=== PATIENT | male | born 1945 | race Caucasian/White ===

== ENCOUNTER 2016-10-31 14:57 | Emergency (ER) | payer MEDICARE ==
[2016-10-31 16:20] VITALS: BP 148/81
--- NOTE | 2016-10-31 18:23 | RAD ---
INDICATION: Left hand pain. Question gout COMPARISON: None TECHNIQUE: AP, lateral, and oblique views were obtained. FINDINGS: There is no acute bony change. There is arthritic change about the first MCP joint with erosive changes suggesting an inflammatory arthropathy. This is consistent but not diagnostic of gout. There is osteoarthritic change about the first CMC articulation. There is cystic change of the carpals consistent with osteoarthritis. There is mild osteoarthritis of the radiocarpal joint. There is soft tissue swelling the dorsum of the hand. There is no radiopaque foreign body. IMPRESSION: NO ACUTE BONY FINDINGS. POSSIBLE GOUTY ARTHRITIS FIRST MCP JOINT. UNDERLYING OSTEOARTHRITIC CHANGES. SOFT TISSUE SWELLING DORSUM OF HAND.
--- NOTE | 2016-10-31 18:37 | UC ---
Jonathon Murrell Alok, scribed for Paty Corona MD on 10/31/16 at 1801 . Upper Extremity HPI - HPI Summary HPI Summary: 70M presents to [facility] with left hand swelling/pain for the last 5 days. Pt also notes redness of the left index finger since 2 days ago. Pt states that initially his left hand pain radiated up to his left shoulder but currently only radiates to his left elbow. Pt took one Alieve at 1230 last night to manage pain. Pt denies direct injury or trauma. Pt denies h/o gout. PMHx includes osteoarthritis and HTN. - History of Current Complaint Chief Complaint: UCUpperExtremity Stated Complaint: SWOLLEN HAND Time Seen by Provider: 10/31/16 17:19 Hx Obtained From: Patient ?: No Onset/Duration: Lasting Days, Still Present Severity Initially: Moderate Severity Currently: Moderate Pain Intensity: 5 Pain Scale Used: 0-10 Numeric Location Of Pain: Is Discrete @ - left hand, Radiates To - left elbow Character: Aching Aggravating Factor(s): Flexion Alleviating Factor(s): OTC Meds - Aleve Associated Signs And Symptoms: Positive: Swelling, Redness Related History: Dominant Hand Right - Risk Factors Non-Orthopedic Risk Factor: Negative DVT Risk Factors: Negative Septic Arthritis Risk Factor: Negative - Allergies/Home Medications Allergies/Adverse Reactions: Allergies Allergy/AdvReac Type Severity Reaction Status Date / Time No Known Allergies Allergy Verified 10/31/16 16:12 Home Medications: Home Medications Amlodipine Besylate [Norvasc 10 mg tab] 10 mg PO DAILY 10/31/16 [History Confirmed 10/31/16] Atenolol [Tenormin 25 MG] 40 mg PO DAILY 10/31/16 [History Confirmed 10/31/16] Finasteride TAB* [Proscar TAB*] 5 mg PO DAILY 10/31/16 [History Confirmed ] Lisinopril & Hydrochlorothiazi [Zestoretic 20-25 mg-] 1 tab PO DAILY 10/31/16 [ History Confirmed 10/31/16] PMH/Surg Hx/FS Hx/Imm Hx Cardiovascular History: Hypertension - Surgical History Surgical History: Yes Surgery Procedure, Year, and Place: Cataract R - Family History Known Family History: Positive: Other - Yes- Gout - Social History Occupation: Retired Lives: With Family Alcohol Use: Weekly Substance Use Type: None Smoking Status (MU): Former Smoker Length of Time of Smoking/Using Tobacco: stopped Review of Systems Constitutional: Negative Skin: Other - redness left dorsum of hand and especially left index at PIP joint Respiratory: Negative Cardiovascular: Negative Motor: Negative Neurovascular: Negative Musculoskeletal: Arthralgia, Other: - left hand swelling and erythema with pain All Other Systems Reviewed And Are Negative: Yes Physical Exam Triage Information Reviewed: Yes Appearance: Well-Appearing, Well-Nourished, Pain Distress Vital Signs: Initial Vital Signs Temp 98.3 F 10/31/16 16:14 Pulse 67 10/31/16 16:14 Resp 16 10/31/16 16:14 BP 148/81 10/31/16 16:14 Pulse Ox 99 10/31/16 16:14 Vital Signs Reviewed: Yes Eyes: Positive: Conjunctiva Clear ENT Exam: Normal Neck: Positive: Supple Respiratory: Positive: Lungs clear, Normal breath sounds, No respiratory distress Cardiovascular: Positive: RRR, No Murmur, Pulses Normal, Brisk Capillary Refill Bowel Sounds: Positive: Present Musculoskeletal: Positive: ROM Limited @ - left index finger, Other: - Left index PIP acute redness. Diffuse redness left hand with swelling on dorsum. Good movement left hand. Left index PIP ROM limited in flexion due to pain and swelling. No snuff box or red streaks Neurological: Positive: Alert, Muscle Tone Normal Psychological Exam: Normal Skin: Positive: Other - Left index PIP acute redness. Diffuse redness left hand with swelling. Good movement left hand. Left index PIP ROM limited. No snuff box or red streaks Diagnostics - Radiology Hand XRAY Xray Interpretation: Positive (See Comments) - IMPRESSION: NO ACUTE BONY FINDINGS. POSSIBLE GOUTY ARTHRITIS FIRST MCP JOINT. UNDERLYING OSTEOARTHRITIC CHANGES. SOFT TISSUE SWELLING DORSUM OF HAND. Radiology Interpretation Completed By: Radiologist Upper Extremity Course/Dx - Course Course Of Treatment: Pt medication reviewed this visit. High blood pressure noted. Pt presented with left hand swelling and pain. Hand XRAY done. Results showed probable gout. Will discharge pt home with pain medication and antibiotic rx to treat for cellulitis and gout, since the hand redness preceded the acutely red and painful index finger. - Differential Dx/Diagnosis Differential Diagnosis/HQI/PQRI: Contusion, Strain, Sprain, Other - Gout, cellulitis Provider Diagnoses: Blood pressure under poor control. Gout. Cellulitis. Discharge - Discharge Plan Condition: Stable Disposition: HOME Prescriptions: Cephalexin CAP* [Keflex 500 CAP*] 500 mg PO QID #40 cap Indomethacin CAP* [Indocin CAP*] 50 mg PO TID PRN #30 cap PRN Reason: Pain Patient Education Materials: Cellulitis (ED), Low Purine Diet (ED), Gout (ED) Referrals: Raleigh Valadez MD [Primary Care Provider] - 2 Days Additional Instructions: RETURN TO URGENT CARE FOR ANY NEW OR WORSENING SYMPTOMS The documentation as recorded by the Jonathon frank Alok accurately reflects the service I personally performed and the decisions made by Cj coates Barbara J, MD.
== END 2016-10-31 18:43 | disposition home or self-care (01) ==
LOC: UCEAST 14:57
DX: I10 Essential (primary) hypertension (principal); M10.9 Gout, unspecified; L03.114 Cellulitis of left upper limb
CPT/HCPCS: 99202; G0463

== ENCOUNTER 2017-03-26 08:10 | Day surgery (SDC) | payer MEDICARE ==
[~2017-03-26 08:10] MED LIST: Acetaminophen TAB* 325 MG PO PRN; Buffered Lidocaine 0.9% SYRIN* 5 ML/SYR SYRINGE INTRADERM ONE; Phenylephr/Ketorolac 1%/0.3% OPH DROP BTL ONE
[2017-03-26] MEDS ORDERED: fentaNYL* 50 MCG/ML 2 ML VIAL (100 MCG VIAL) ONE (08:58)
[2017-03-26] MEDS ORDERED: Midazolam* 1 MG/ML 2 ML VIAL (2 MG) ONE (08:58)
[2017-03-26 09:50] VITALS: BP 102/52
--- NOTE | 2017-03-27 01:15 | OP ---
OPERATIVE REPORT: DATE OF OPERATION: 03/26/17 - [facility] DATE OF : 43 SURGEON: Dr. Eren Blake. [employer] SUPERVISOR: None. ANESTHESIA: Topical with intravenous sedation. PRE-OP DIAGNOSIS: Cataract, left eye. POST-OP DIAGNOSIS: Cataract, left eye. OPERATIVE PROCEDURE: Phacoemulsification and cataract extraction with posterior chamber intraocular lens implant, left eye. COMPLICATIONS: None. BLOOD LOSS: None. OPERATIVE FINDINGS: The patient was brought to the operating room and received a small amount of intravenous sedation. A drop of Tetracaine was placed in his left eye. He was prepped and draped in the usual sterile fashion for ophthalmic surgery and attention was directed to the left eye where a speculum was placed. A paracentesis was created at the 5 o'clock position and 0.1 cc of 1 percent preservative-free Lidocaine was injected into the anterior chamber followed by DisCoVisc. The eye was digitally stabilized while a 2.75 mm keratome was used to create a triplanar clear corneal incision at the 3 o'clock position. A continuous curvilinear capsulorrhexis was created with a cystotome and Utrata forceps. BSS on a cannula was used to hydrodissect the lens from the capsule. Phacoemulsification was performed in a [id number] technique to create four fragments which were removed. Residual cortical material was removed with irrigation and aspiration. DisCoVisc was used to inflate the capsular bag and an [id number] 20.0 diopter lens was folded and inserted into the capsular bag. DisCoVisc was removed using irrigation and aspiration. BSS on a cannula was used to hydrate the corneal stroma and seal the wound. At the end of the case the pupil was round and the lens was centered. The eye was of normal pressure and the wound was water tight. The speculum was removed and topical Maxitrol ointment was placed on the surface of the eye. The eye was closed, patched and shielded and the patient was sent to the recovery room in stable condition with post operative instructions and follow-up appointment given. [id number]/CPS #: [id number] MTDD
== END 2017-03-26 09:53 | disposition home or self-care (01) ==
LOC: OREAST 08:10
PROVIDERS: ATTEND Ophthalmology
DX: H25.12 Age-related nuclear cataract, left eye (principal); I10 Essential (primary) hypertension; E78.00 Pure hypercholesterolemia, unspecified; K21.9 Gastro-esophageal reflux disease without esophagitis; E78.4 Other hyperlipidemia; M10.00 Idiopathic gout, unspecified site; Z87.891 Personal history of nicotine dependence; N40.1 Benign prostatic hyperplasia with lower urinary tract symptoms; R35.0 Frequency of micturition
CPT/HCPCS: C9447; J2250; J3010